=== PATIENT | female | born 1950 | race African-American/Black ===

== ENCOUNTER 2017-12-24 05:56 | Inpatient (IN) | payer MEDICARE ==
[2017-12-23 12:30] LABS: BASOPHILS 0.3 % (0-2); EOSINOPHILS 0.2 % (0-7); HEMOGLOBIN 11.4 g/dL (12-16); IMMATURE GRANULOCYTES 0.2 % (0-5); LYMPHOCYTES 24.6 % (15-50); MCHC 33.5 g/dL (31.0-37.0); MCV 86.5 fL (80.0-100.0); MEAN PLATELET VOLUME 10.2 fL (7.4-10.4); MONOCYTES 12.2 % (2-11); NEUTROPHILS 62.5 % (40-80); PLATELET COUNT 166 10x3/uL (130-400); RBC 3.93 10x6/uL (4.00-5.40); RDW 16.1 % (11.5-14.5); WBC 6.1 10x3/uL (4.8-10.8)
[2017-12-23 12:41] LABS: ANION GAP 12.8 mmol/L (8-16); CALCIUM 8.4 mg/dL (8.5-10.1); CARBON DIOXIDE 29.8 mmol/L (21.0-32.0); CREATININE - SERUM 10.5 mg/dL (0.6-1.3); POTASSIUM - SERUM 3.6 mmol/L (3.5-5.1)
[2017-12-23 12:46] LABS: INR 1.03 (0.85-1.17); PROTIME 13.1 SECONDS (11.6-15.0)
[2017-12-23 12:47] LABS: APTT 28.1 SECONDS (22.8-39.4)
--- NOTE | ~2017-12-24 | OP ---
PATIENT NAME: CONSUELO FOUNTAIN MEDICAL RECORD: [id number] :52 LOCATION:D.M2 D.2106 ADMISSION DATE:12/24/17 SURGEON: MYNOR VELEZ MD DATE OF OPERATION: 12/24/2017 She is admitted to the hospital today on Wednesday12/24/2017. REFERRING PHYSICIAN: Susan Worthy MD. PREOPERATIVE DIAGNOSES: ESRD and secondary hyperparathyroidism. POSTOPERATIVE DIAGNOSES: ESRD and secondary hyperparathyroidism. OPERATION PERFORMED: Neck exploration with excision of 2 parathyroids and right thyroid lobectomy and also insertion of a right internal jugular triple lumen central venous catheter done with ultrasound guidance. SURGEON: Mynor Velez MD ANESTHESIA: General endotracheal per OFFSET MACHINE OPERATOR. PREOPERATIVE NOTE: Ms. Fountain is a 67-year-old -[place] female from [place], [place]. She has end-stage renal disease and is on hemodialysis. She has secondary hyperparathyroidism, which has not been controlled medically and was referred to me for parathyroidectomy. The patient was seen in my office last month and is brought to the operating room at this time to proceed with a neck exploration. Under general endotracheal anesthesia, the patient was prepped and draped in sterile manner. A transverse collar type cervical incision was made 2 fingerbreadths above the clavicular heads. Superior and inferior flaps were raised with electrocautery and the strap muscles were in the midline. Dissection on the left side was commenced by elevating the strap muscles from the anterior surface of the thyroid gland and mobilizing the left thyroid lobe. This was done with sharp and blunt dissection and extensive use of the Harmonic scalpel. I did mobilize the superior pole and it was there that I found a normal sized reddish brown structure, which I thought was probably a parathyroid gland. This was sent to the laboratory for frozen section and confirmed as indeed a parathyroid gland, which was of normal size and weight, but hypercellular without fat consistent with hyperplasia. I further mobilized the left lobe and exposed and carefully protected the recurrent laryngeal nerve as further dissection was done. I explored the tracheoesophageal groove and explored posterior to the esophagus and explored the carotid sheath and did not find any other parathyroid glands. The right side was then explored in a similar manner. On this side, there was a fairly large thyroid nodule which seemed to extend posteriorly around the posterior side of the esophagus. I fully mobilized the right lobe, exposed and carefully protected the recurrent laryngeal nerve and mobilized the superior pole ligating vessels with Vicryl ties and making extensive use of the Harmonic scalpel. I did find a structure, which I removed and labeled it as a right superior parathyroid gland. This did prove to be hypercellular parathyroid weighing about 5 grams, which was not very enlarged. I fully mobilized the thyroid gland and continued to explore and did not find another parathyroid. I OPERATIVE REPORT [id number] CONSUELO FOUNTAIN looked extensively in the tracheoesophageal groove and retroesophageal and even into the right carotid sheath. I explored the upper mediastinum on both the left and right sides in the midline. I did expose a fairly large lymph node in the superior mediastinum on the right and this was noted to be anthracotic. I did excise it and the diagnosis was confirmed by pathology. In short, I located 2 not very enlarged parathyroid glands, both from the superior positions and was unsuccessful in locating the lower parathyroids. I did completely mobilized the right lobe and resected along the midline and it also was sent for frozen section or fresh examination by pathology and when she cut the gland that she did not find a discrete nodule. Final diagnosis will await permanent sections. The wound was irrigated with saline and the patient was given 20 mcg of DDAVP to help with hemostasis. I examined both sides carefully and found the hemostasis was satisfactory. A 7-mm flat fluted drain was left in the wound. This was split, so that one half went over on the right side and the other on the left and it was brought out through a small stab incision beneath the primary incision and later attached to suction. I used ultrasound to image and locate the right internal jugular vein and inserted a micropuncture needle above and lateral to the incision. I inserted a wire directly into the vein and then a dilator and then a triple lumen central venous line was inserted. All 3 lumens were flushed with saline and then heparin solution, clamped, and capped. The central line was sutured to the skin near the entry site with 2-0 Prolene. The wound was then closed, closing the strap muscles in the midline with interrupted simple 3-0 Vicryl and closing the platysma with interrupted inverted 3-0 Vicryl sutures. Skin was closed with a running intracuticular 4-0 Monocryl and Dermabond glue. Sterile dressing was applied and the patient awakened from her anesthetic and extubated. She was taken to the recovery room in stable condition. She seems to have normal voice quality in the recovery room and no signs of bleeding. She is hypotensive in the recovery room. She will need to be admitted to the hospital for observation and monitoring both for potential airway obstruction and potential bleeding as well as to monitor her PTH and calcium levels. Blood loss during the operation was about 10 cc and unreplaced. All sponges, instruments and needles were accounted for. One drain was used as I described and the surgical specimens were as I described. TRANSINT:[id number] Voice Confirmation ID: [id number] DOCUMENT ID: [id number] MYNOR VELEZ MD at 1404 CC: SUSAN WORTHY [id number] DICTATION DATE: 12/24/17 1207 TEMPERATURE INSPECTOR: 12/24/17 1235 ADM IN [facility] [address] [place] [address]
[~2017-12-24 05:56] MED LIST: MIDODRINE HCL5 MG PO; RENVELA800 MG PO
[2017-12-24 06:26] VITALS: BP 76/46; BMI 22.3
[2017-12-24 21:35] VITALS: BP 78/42
[2017-12-25] VITALS (7 sets, daily range): BP systolic 68–88; BP diastolic 32–45; BMI 22.3
[2017-12-26 03:51] VITALS: BP 65/32
[2017-12-26 06:33] VITALS: BP 77/42
[2017-12-26 06:40] LABS: BASOPHILS 0.3 % (0-2); EOSINOPHILS 0.2 % (0-7); HEMATOCRIT 25.3 % (36.0-48.0); HEMOGLOBIN 8.4 g/dL (12-16); IMMATURE GRANULOCYTES 0.2 % (0-5); LYMPHOCYTES 9.2 % (15-50); MCH 28.5 pg (26.0-34.0); MCHC 33.2 g/dL (31.0-37.0); MCV 85.8 fL (80.0-100.0); MEAN PLATELET VOLUME 10.3 fL (7.4-10.4); NEUTROPHILS 74.1 % (40-80); PLATELET COUNT 160 10x3/uL (130-400); RBC 2.95 10x6/uL (4.00-5.40); RDW 16.5 % (11.5-14.5); WBC 9.7 10x3/uL (4.8-10.8)
[2017-12-26 07:04] LABS: ANION GAP 16.5 mmol/L (8-16); CARBON DIOXIDE 26.1 mmol/L (21.0-32.0); CREATININE - SERUM 11.5 mg/dL (0.6-1.3); POTASSIUM - SERUM 3.6 mmol/L (3.5-5.1)
[2017-12-26 07:26] LABS: CALCIUM 6.8 mg/dL (8.5-10.1)
[2017-12-26 09:46] VITALS: BP 69/38
[2017-12-26 11:29] LABS: ALBUMIN 1.8 g/dL (3.4-5.0); BILIRUBIN - DIRECT 0.13 mg/dL (0.00-0.30); BILIRUBIN - INDIRECT 0.41 mg/dL (0.00-1.00); BILIRUBIN - TOTAL 0.54 mg/dL (0.2-1.3); PROTEIN - SERUM 5.6 g/dL (6.4-8.2)
[2017-12-26 12:50] VITALS: BP 79/35
[2017-12-26 16:09] VITALS: BP 62/37
[2017-12-26 20:30] VITALS: BP 80/41
[2017-12-27 00:30] VITALS: BP 64/40
[2017-12-27 04:30] VITALS: BP 66/38
[2017-12-27 06:48] LABS: BASOPHILS 0.3 % (0-2); EOSINOPHILS 0.3 % (0-7); HEMATOCRIT 28.8 % (36.0-48.0); HEMOGLOBIN 9.4 g/dL (12-16); IMMATURE GRANULOCYTES 0.1 % (0-5); LYMPHOCYTES 14.3 % (15-50); MCH 28.2 pg (26.0-34.0); MCHC 32.6 g/dL (31.0-37.0); MCV 86.5 fL (80.0-100.0); MEAN PLATELET VOLUME 10.4 fL (7.4-10.4); MONOCYTES 15.8 % (2-11); NEUTROPHILS 69.2 % (40-80); PLATELET COUNT 160 10x3/uL (130-400); RBC 3.33 10x6/uL (4.00-5.40); RDW 16.3 % (11.5-14.5)
[2017-12-27 06:50] LABS: ANION GAP 14.7 mmol/L (8-16); CALCIUM 7.1 mg/dL (8.5-10.1); CARBON DIOXIDE 27.1 mmol/L (21.0-32.0); CREATININE - SERUM 11.9 mg/dL (0.6-1.3); POTASSIUM - SERUM 3.8 mmol/L (3.5-5.1)
[2017-12-27 08:32] VITALS: BP 79/37
[2017-12-27 11:46] VITALS: BP 90/39
[2017-12-27 15:26] VITALS: BP 80/48
[2017-12-27 20:43] VITALS: BP 91/42
[2017-12-28] VITALS: BP 83/43
[2017-12-28 04:00] VITALS: BP 74/40
[2017-12-28 07:05] LABS: HEMOGLOBIN 9.8 g/dL (12-16); LYMPHOCYTES 11.4 % (15-50); MCH 29.3 pg (26.0-34.0); MCHC 33.8 g/dL (31.0-37.0); MCV 86.6 fL (80.0-100.0); MEAN PLATELET VOLUME 9.4 fL (7.4-10.4); NEUTROPHILS 71.4 % (40-80); PLATELET COUNT 153 10x3/uL (130-400); RBC 3.35 10x6/uL (4.00-5.40); RDW 16.4 % (11.5-14.5); WBC 5.6 10x3/uL (4.8-10.8)
[2017-12-28 07:08] LABS: ANION GAP 12.7 mmol/L (8-16); CALCIUM 7.3 mg/dL (8.5-10.1); CARBON DIOXIDE 28.5 mmol/L (21.0-32.0); CREATININE - SERUM 11.2 mg/dL (0.6-1.3); POTASSIUM - SERUM 4.2 mmol/L (3.5-5.1)
[2017-12-28 09:13] VITALS: BP 75/48
[2017-12-28 13:46] VITALS: BP 91/53
[2017-12-28 17:46] VITALS: BP 104/62
[2017-12-28 20:00] VITALS: BP 82/44
[2017-12-29] VITALS: BP 73/51
[2017-12-29 04:00] VITALS: BP 76/40
[2017-12-29 05:57] LABS: BASOPHILS 0.5 % (0-2); EOSINOPHILS 0.2 % (0-7); HEMATOCRIT 30.2 % (36.0-48.0); HEMOGLOBIN 9.9 g/dL (12-16); IMMATURE GRANULOCYTES 0.5 % (0-5); LYMPHOCYTES 16.3 % (15-50); MCH 28.5 pg (26.0-34.0); MCHC 32.8 g/dL (31.0-37.0); MEAN PLATELET VOLUME 9.8 fL (7.4-10.4); MONOCYTES 19.7 % (2-11); NEUTROPHILS 62.8 % (40-80); PLATELET COUNT 174 10x3/uL (130-400); RBC 3.47 10x6/uL (4.00-5.40); RDW 16.2 % (11.5-14.5); WBC 6.2 10x3/uL (4.8-10.8)
[2017-12-29 06:15] LABS: ANION GAP 16.2 mmol/L (8-16); CALCIUM 7.5 mg/dL (8.5-10.1); CARBON DIOXIDE 28.4 mmol/L (21.0-32.0); POTASSIUM - SERUM 4.6 mmol/L (3.5-5.1)
[2017-12-29 09:10] VITALS: BP 76/41
[2017-12-29] MEDS ORDERED: TUMS500 MG PO (10:33)
[2017-12-29] MEDS ORDERED: ROCALTROL0.25 MCG PO (10:34)
[2017-12-29 12:16] VITALS: BP 80/36
== END 2017-12-29 16:37 | disposition home or self-care (01) | DRG 675 ==
LOC: D.OPS 05:56 → D.MS 05:56 → D.OPS 07:30 → D.PAN 07:30 → D.OPS 08:00 → D.MS 19:56 → D.M2 19:57 → D.OPS 19:57 → D.M2 12-25 13:40
PROVIDERS: Internal Medicine Nephrology; Surgery
PROC: B543ZZA Ultrasonography of Right Jugular Veins, Guidance (ICD-10-PCS; 2017-12-24)
PROC: 0GBQ0ZZ Excision of Multiple Parathyroid Glands, Open Approach (ICD-10-PCS; principal; 2017-12-24 08:00)
PROC: 0GBG0ZZ Excision of Left Thyroid Gland Lobe, Open Approach (ICD-10-PCS; 2017-12-24 08:00)
PROC: 05HM33Z Insertion of Infusion Device into Right Internal Jugular Vein, Percutaneous Approach (ICD-10-PCS; 2017-12-24 08:00)
DX: N25.81 Secondary hyperparathyroidism of renal origin (principal); N18.6 End stage renal disease; Z99.2 Dependence on renal dialysis; I95.9 Hypotension, unspecified; E87.6 Hypokalemia; E83.51 Hypocalcemia; D63.1 Anemia in chronic kidney disease